=== PATIENT | female | born 1995 | race Two or more races ===

== ENCOUNTER 2021-07-07 09:22 | Outpatient (CLI) | payer OTHER | END 2021-07-07 10:41 | disposition home or self-care (01) | LOC: PRENATAL 09:22 | PROVIDERS: ATTEND Obstetrics & Gynecology Maternal & Fetal Medicine | DX: O35.3XX0 Maternal care for (suspected) damage to fetus from viral disease in mother, not applicable or unspecified (principal); O99.210 Obesity complicating pregnancy, unspecified trimester ==

== ENCOUNTER 2021-11-06 14:53 | Inpatient (IN) | payer OTHER ==
[~2021-11-06] VITALS: Ht 157.5 cm; Wt 3.2 kg
[2021-11-07] MEDS ORDERED: PRENATAL TABLE1 EAC1 PO (06:49)
[2021-11-07] MEDS ORDERED: IRON236 MG PO (06:50)
[2021-11-08] MEDS ORDERED: CONCEPT DHA CA1 EACH (13:43)
[2021-11-08] MEDS ORDERED: PROFERRIN-FORT1 EACH (13:43)
[2021-11-08] MEDS ORDERED: ST. JOSEPH ASPI81 M2 (13:43)
== END 2021-11-10 13:26 | disposition home or self-care (01) | DRG 788 ==
LOC: OBS/DEL 14:53 → OB/GYN 11-07 06:28 → LDR 11-07 06:28 → OB/GYN 11-07 19:49
PROVIDERS: ADMIT Obstetrics & Gynecology; ATTEND Obstetrics & Gynecology
PROC: 4A1HXCZ Monitoring of Products of Conception, Cardiac Rate, External Approach (ICD-10-PCS; 2021-11-07)
PROC: 10D00Z1 Extraction of Products of Conception, Low, Open Approach (ICD-10-PCS; principal; 2021-11-07 17:15)
DX: O62.0 Primary inadequate contractions (principal); O62.1 Secondary uterine inertia; Z3A.38 38 weeks gestation of pregnancy; Z37.0 Single live birth; Z20.822 Contact with and (suspected) exposure to COVID-19

== ENCOUNTER 2023-03-14 13:44 | Outpatient (CLI) | payer OTHER ==
[~2023-03-14 13:44] MED LIST: CONCEPT DHA CA1 EACH; IRON236 MG PO; PRENATAL TABLE1 EAC1 PO; PROFERRIN-FORT1 EACH; ST. JOSEPH ASPI81 M2
== END 2023-03-14 14:09 | disposition home or self-care (01) ==
LOC: PRENATAL 13:44
PROVIDERS: ATTEND Obstetrics & Gynecology Maternal & Fetal Medicine
DX: O36.80X0 Pregnancy with inconclusive fetal viability, not applicable or unspecified (principal); Z36.82 Encounter for antenatal screening for nuchal translucency; Z36.9 Encounter for antenatal screening, unspecified; O34.219 Maternal care for unspecified type scar from previous cesarean delivery; O26.859 Spotting complicating pregnancy, unspecified trimester; Z3A.13 13 weeks gestation of pregnancy

== ENCOUNTER 2023-05-02 13:13 | Outpatient (CLI) | payer OTHER | END 2023-05-02 13:20 | disposition home or self-care (01) | LOC: PRENATAL 13:13 | PROVIDERS: ATTEND Obstetrics & Gynecology Maternal & Fetal Medicine | DX: O26.849 Uterine size-date discrepancy, unspecified trimester (principal); O36.8199 Decreased fetal movements, unspecified trimester, other fetus; Z3A.32 32 weeks gestation of pregnancy ==

== ENCOUNTER 2023-06-28 10:12 | Outpatient (CLI) | payer OTHER | END 2023-06-28 10:13 | disposition home or self-care (01) | LOC: PRENATAL 10:12 | PROVIDERS: ATTEND Obstetrics & Gynecology Maternal & Fetal Medicine | DX: O26.849 Uterine size-date discrepancy, unspecified trimester (principal); O34.219 Maternal care for unspecified type scar from previous cesarean delivery; Z3A.28 28 weeks gestation of pregnancy ==

== ENCOUNTER → 2023-08-08 10:14 | Outpatient (CLI) | payer OTHER | END | disposition home or self-care (01) | LOC: PRENATAL 10:14 | PROVIDERS: ATTEND Obstetrics & Gynecology Maternal & Fetal Medicine | DX: O26.849 Uterine size-date discrepancy, unspecified trimester (principal); O36.8199 Decreased fetal movements, unspecified trimester, other fetus; O34.219 Maternal care for unspecified type scar from previous cesarean delivery; O99.210 Obesity complicating pregnancy, unspecified trimester; Z3A.34 34 weeks gestation of pregnancy ==

== ENCOUNTER 2023-09-06 06:13 | Inpatient (IN) | payer OTHER ==
[~2023-09-06] VITALS: Ht 157.5 cm; Wt 2.7 kg
[2023-09-06] MEDS ORDERED: IRON325 MG PO (07:02)
[2023-09-06] MEDS ORDERED: CHILDREN'S ASPI81 MG PO (07:03)
[2023-09-06] MEDS ORDERED: CEFAZOLIN SODIUM 1,000 MG VIAL IV SCH (07:15)
[2023-09-06 07:57] LABS: HEMATOCRIT 33.7 % (36.0-45.00); MEAN CELL VOLUME 87.6 fL (80.00-100.00); MEAN CORPUSCULAR HEMOGLOBIN 28.7 pg (27.00-32.0); MEAN CORPUSCULAR HGB CONC 32.7 g/dl (32.0-36.0); RED BLOOD COUNT 3.85 M/uL (4.00-6.00)
[2023-09-06 08:03] LABS: PLATELET COUNT 92 K/uL (150-450)
[2023-09-06 08:04] LABS: URINE BACTERIA 5863.9 uL (0.0-1933); URINE EPITHELIAL CELLS 53.4 uL (0.0-38.8); URINE RBC 33.9 uL (0.0-20.8); URINE WBC 53.9 uL (0.0-23.2)
[2023-09-06 08:19] LABS: INR 0.95; PARTIAL THROMBOPLASTIN TIME 27.4 SECONDS (22.0-34.0)
[2023-09-06 08:28] LABS: ALBUMIN 3.2 gm/dL (3.4-5.0); BILIRUBIN TOTAL 0.42 mg/dL (0.3-1.2); CALCIUM 9.1 mg/dL (8.5-10.1); CREATININE SERUM 0.58 mg/dL (0.55-1.02); GFR 123.79; GLOBULINA 3.2 G/DL (2.4-3.5); PH,URINE 6.5; POTASSIUM 3.93 mEq/L (3.5-5.1); TOTAL PROTEIN 6.4 gm/dL (6.4-8.2); URINE BILIRRUBIN NEGATIVE (NEGATIVE); URINE BLOOD NEGATIVE; URINE GLUCOSE NEGATIVE (NEGATIVE); URINE LEUKOCYTE SMALL; URINE NITRATE NEGATIVE; URINE PROTEIN NEGATIVE (NEGATIVE); URINE UROBILINOGEN 0.2 E.U./dl
[2023-09-06 09:12] LABS: URINE APPEARANCE CLEAR; URINE COLOR YELLOW
[2023-09-06 09:42] LABS: URINE CRYSTALS MANY /HPF
[2023-09-06] MEDS ORDERED: OXYTOCIN 10 UNITS/ML VIAL ONE (20:22)
[2023-09-06] MEDS ORDERED: ERYTHROMYCIN BASE 3.5 GM OINT...G. OP ONE (20:23)
[2023-09-06] MEDS ORDERED: OXYTOCIN 10 UNITS/ML VIAL IV ONE (21:15)
[2023-09-06] MEDS ORDERED: ERYTHROMYCIN BASE 1 GM TUBE OP ONE (21:15)
[2023-09-06] MEDS ORDERED: MEPERIDINE HCL/PF 50 MG/ML VIAL IV SCH (21:23)
[2023-09-06] MEDS ORDERED: PROMETHAZINE HCL 50 MG/ML AMPUL IV SCH (21:23)
[2023-09-06] MEDS ORDERED: SIMETHICONE 125 MG CAPSULE PO SCH (21:24)
[2023-09-06] MEDS ORDERED: RINGERS SOLUTION,LACTATED 1,000 ML IV SCH (21:30)
[2023-09-06] MEDS ORDERED: ERYTHROMYCIN BASE 1 GM TUBE OP SCH (21:30)
[2023-09-06] MEDS ORDERED: OXYTOCIN 1,000 ML IV SCH (21:30)
[2023-09-06] MEDS ORDERED: CHLORHEXIDINE GLUCONATE 120 ML BOTTLE TOP SCH (21:30)
[2023-09-07 07:15] LABS: HEMATOCRIT 34.3 % (36.0-45.00); HEMOGLOBIN 11.4 g/dL (12.0-15.00); MEAN CELL VOLUME 87.5 fL (80.00-100.00); MEAN CORPUSCULAR HGB CONC 33.2 g/dl (32.0-36.0); PLATELET COUNT 83 K/uL (150-450); RED BLOOD COUNT 3.92 M/uL (4.00-6.00)
[2023-09-07] MEDS ORDERED: ACETAMINOPHEN WITH CODEINE 1 UDTAB TABLET PO PRN (09:00)
[2023-09-07] MEDS ORDERED: IBUprofen 600 MG TABLET PO PRN (09:00)
[2023-09-07] MEDS ORDERED: FAMOtidine 20 MG TABLET PO SCH (09:00)
[2023-09-09] MEDS ORDERED: IBUPROFEN600 MG PO (14:19)
[2023-09-09] MEDS ORDERED: ACETAMINOPHEN-1 EAC2 PO (14:20)
== END 2023-09-09 14:48 | disposition home or self-care (01) | DRG 785 ==
LOC: LDR 06:13 → OB/GYN 06:13
PROVIDERS: Obstetrics & Gynecology; ADMIT Student in an Organized Health Care Education/Training Program; ATTEND Student in an Organized Health Care Education/Training Program
PROC: 0UB70ZZ Excision of Bilateral Fallopian Tubes, Open Approach (ICD-10-PCS; 2023-09-06)
PROC: 4A1HXCZ Monitoring of Products of Conception, Cardiac Rate, External Approach (ICD-10-PCS; 2023-09-06)
PROC: 10D00Z1 Extraction of Products of Conception, Low, Open Approach (ICD-10-PCS; principal; 2023-09-06 20:00)
DX: O34.211 Maternal care for low transverse scar from previous cesarean delivery (principal); Z3A.38 38 weeks gestation of pregnancy; Z37.0 Single live birth; Z20.822 Contact with and (suspected) exposure to COVID-19; Z30.2 Encounter for sterilization